=== PATIENT | male | born 1985 | race Caucasian/White ===

== ENCOUNTER 2018-01-04 09:28 | Emergency (ER) | payer MEDICAID ==
[~2018-01-04] VITALS: Ht 180.3 cm; Wt 72.7 kg
[~2018-01-04 09:28] MED LIST: CLIN150C16 PO; NO HOME MEDS
[2018-01-04 09:29] VITALS: BP 111/64
== END 2018-01-04 10:15 | disposition home or self-care (01) ==
LOC: ER 09:28
DX: Z02.89 Encounter for other administrative examinations (principal); F11.10 Opioid abuse, uncomplicated; F15.10 Other stimulant abuse, uncomplicated
CPT/HCPCS: 99281